=== PATIENT | male | born 1950 ===

== ENCOUNTER 2025-04-07 17:36 | Emergency (ER) | payer OTHER ==
[2025-04-07 18:08] VITALS: BMI 23.5
[2025-04-07 20:08] LABS: URINE APPEARANCE CLEAR; URINE BILIRUBIN NEGATIVE (NEGATIVE); URINE COLOR YELLOW; URINE GLUCOSE (UA) NEGATIVE (NEGATIVE); URINE KETONE NEGATIVE (NEGATIVE); URINE LEUK ESTERASE NEGATIVE (NEGATIVE); URINE NITRITE NEGATIVE (NEGATIVE); URINE PROTEIN NEGATIVE (NEGATIVE); URINE UROBILINOGEN 0.2 mg/dL (0.2-1.0)
[2025-04-07 20:36] LABS: ABSOLUTE IMMATURE GRANULOCYTES 0.01 x10^3/uL (0.0-0.031); BASOPHILS # 0.02 x10^3/uL (0.01-0.08); EOSINOPHIL % 0.8 % (0.8-7.0); EOSINOPHILS # 0.04 x10^3/uL (0.04-0.54); MCHC 32.3 g/dl (32.3-36.5); MEAN CELL VOLUME 93.7 fl (79.0-92.2); MEAN PLT VOLUME 8.8 fl (9.4-12.4); MONOCYTE # 0.36 x10^3/uL (0.30-0.82); MONOCYTE % 7.5 % (5.3-12.2); RDW 14.7 % (12.2-16.6)
[2025-04-07 20:47] LABS: INR 1.1 (0.83-1.09); PROTHROMBIN TIME (PATIENT) 12.1 SEC (9.7-13.0)
[2025-04-07 20:50] LABS: ACTIVATED PTT 29.6 SECONDS (25.2-36.5)
[2025-04-07 20:55] LABS: GLUCOSE,RANDOM 102.0 mg/dL (74-106); TOT PROT 7.4 g/dl (6.4-8.2)
[2025-04-07 20:56] LABS: CO2 22.0 mmol/L (21-32)
[2025-04-07 20:58] LABS: ALK PHOS 49.0 U/L (40-150)
[2025-04-07 21:00] LABS: SGOT/AST 32.0 U/L (5-34); SGPT/ALT 22.0 U/L (0-55)
[2025-04-07 21:01] LABS: CREATININE 1.92 mg/dL (0.55-1.3)
[2025-04-07] MEDS: SODIUM CHLORIDE 0.9% 500 ML INFUS.BAG IV ONE (22:01)
[2025-04-08 00:53] VITALS: TEMP 98.2
[2025-04-08 01:58] VITALS: BP 142/62; PULSE 66; RESP 14
== END 2025-04-08 02:03 | disposition home or self-care (01) ==
LOC: JER 17:36
PROC: 2W3CX1Z Immobilization of Right Lower Arm using Splint (ICD-10-PCS; principal; 2025-04-07)
DX: S62.011A Displaced fracture of distal pole of navicular [scaphoid] bone of right wrist, initial encounter for closed fracture (principal); X58.XXXA Exposure to other specified factors, initial encounter
CPT/HCPCS: 36415; 70450-TC; 71045-TC-FY; 72125-TC; 72170-TC-FY; 73110-TC-RT-FY; 80053; 81003; 84436; 84443; 84484; 85025; 85610; 85730; 87086; 93005; 93010; 99285-25